=== PATIENT | male | born 1955 | race Caucasian/White ===

== ENCOUNTER 2017-07-25 16:22 | Emergency (ER) | payer SELFPAY ==
[~2017-07-25] VITALS: Ht 165.1 cm; Wt 75.8 kg
[2017-07-25 16:59] LABS: HEMATOCRIT 47.4 % (38.0-50.0); MCH 31.1 PG (29.0-34.0); MCHC 36.1 G/DL (30.0-36.0); MCV 86.2 FL (86-99); PLATELET COUNT 80 K/uL (156-360); RBC DIS.WIDTH-CV 12.1 % (11.8-14.6); RBC DIS.WIDTH-SD 38.4 % (39-53); WHITE BLOOD COUNT 5.6 K/uL (4.1-10.2)
[2017-07-25 17:08] LABS: CHLORIDE 106 mEq/L (99-109); POTASSIUM 3.8 mEq/L (3.7-5.4); SODIUM 142 mEq/L (136-147)
[2017-07-25 17:09] LABS: GLUCOSE 99 mg/dL (70-99)
[2017-07-25 17:11] LABS: ANION GAP 11 MEQ/L (2-14)
[2017-07-25 17:14] LABS: UREA NITROGEN (BUN) 17 mg/dL (9-23)
[2017-07-25 17:16] LABS: GFR ESTIMATE (CALCULATED) > 59 mL/min/
[2017-07-25 17:21] LABS: TROP-I INTERPRETATION NEGATIVE; TROPONIN-I 0.02 ng/mL (0.0-0.30)
[2017-07-25 17:25] LABS: MAGNESIUM 2.5 mg/dL (1.3-2.7)
[2017-07-25 20:35] VITALS: BP 154/60
== END 2017-07-25 20:40 | disposition home or self-care (01) ==
LOC: EME 16:22
DX: I44.1 Atrioventricular block, second degree (principal); I10 Essential (primary) hypertension
CPT/HCPCS: 71020; 80048; 83735; 84484; 85027; 93005; 99281; 99284